=== PATIENT | male | born 1995 | race Asian ===

== ENCOUNTER 2017-04-03 13:17 | Emergency (ER) | payer OTHER, BC ==
[~2017-04-03] VITALS: Ht 195.6 cm; Wt 106.6 kg
[2017-04-03] MEDS ORDERED: MOTRIN800 MG PO (14:02)
[2017-04-03] MEDS ORDERED: LIDODERM 5% P1 PATCH TD (14:02)
[2017-04-03] MEDS ORDERED: FLEXERIL10 MG PO (14:02)
[2017-04-03 15:54] VITALS: BP 134/86
== END 2017-04-03 15:55 | disposition home or self-care (01) ==
LOC: EME 13:17
DX: S29.012A Strain of muscle and tendon of back wall of thorax, initial encounter (principal); S06.0X0A Concussion without loss of consciousness, initial encounter; S39.012A Strain of muscle, fascia and tendon of lower back, initial encounter; V49.40XA Driver injured in collision with unspecified motor vehicles in traffic accident, initial encounter
CPT/HCPCS: 70450; 72070; 72100; 99281; 99284